=== PATIENT | male | born 1945 | race Caucasian/White ===

== ENCOUNTER 2017-04-09 06:23 | Day surgery (SDC) | payer MEDICARE, OTHER ==
[~2017-04-09 06:23] MED LIST: KETOROLAC TROMETHAMINE 0.45% 4 DROP/0.4 ML DROPERETTE OS PRN
[2017-04-09] MEDS: CYCLOPENTOLATE 0.2%/PHENYLEPHRINE 1% OPH SOLN 2 ML OS PRN ×3 (06:42→07:04)
[2017-04-09] MEDS: TROPICAMIDE 1% OPH SOLN 3 ML OS PRN ×3 (06:42→07:04)
[2017-04-09] MEDS: BESIFLOXACIN HCL 0.6% OPH SUSP 5 ML BOTTLE OS PRN ×4 (06:43→07:59)
[2017-04-09] MEDS: TETRACAINE HCL 0.5% OPH SOLN 2 ML OS PRN ×3 (06:44→07:39)
[2017-04-09] MEDS ORDERED: MIDAZOLAM 2 MG/2 ML INJ ONE ×2 (06:57→08:17)
[2017-04-09] MEDS ORDERED: EPINEPHRINE INJ/PF 1 MG/1 ML AMPULE ONE (07:13)
[2017-04-09] MEDS ORDERED: LIDOCAINE 1% INJ-PF (10 MG/ML) 30 ML SDV ONE (07:14)
[2017-04-09] MEDS ORDERED: CHONDR SU A NA/HYALUR INTRAOC KIT (SURGICARE) ONE (07:14)
--- NOTE | 2017-04-10 13:07 | [facility] OPERATIVE REPORT E ---
[facility] Operative Report NAME: HAMIDA ERICKSON AGE: 72Y DATE OF SURGERY: 04/09/2017 ROOM: PREOPERATIVE DIAGNOSIS: CATARACT, LEFT EYE. POSTOPERATIVE DIAGNOSIS: CATARACT, LEFT EYE. OPERATION: Cataract extraction with intraocular lens implant of the left eye. SURGEON: KEATON SILVER M.D. ANESTHESIA: Topical. PROCEDURE: After obtaining appropriate consent, the patient's left eye was prepped and draped in sterile fashion as well as the surgeon in a sterile manner and cataract surgery was started. First a paracentesis blade was used to make a small side-port incision. Viscoelastic was used to inflate the anterior chamber. Next a 2.4-mm incision was made with the paracentesis blade. A continuous capsulorrhexis incision was made using a cystotome and Utrata forceps. Following this hydrodissection was carried out to make the lens fully loose and mobile and it was rotated 90 degrees. Following this, a bktgwa-lpt-qqyiopu technique was used to phacoemulsify the lens with a CDE of 13.66. The remaining cortex was removed with irrigation/aspiration. Provisc was instilled into the capsular bag to inflate the bag. A SN60WF, 18.0 diopter lens was placed. The remaining viscoelastic material was removed with irrigation/aspiration. Following this, a 10-0 nylon suture was used to close the incision and it was found to be watertight. Vigamox was instilled in the eye and a protective shield was placed over the eye. The patient returned to the postoperative recovery in stable condition. DICTATING PHYSICIAN: KEATON SILVER M.D. 1209M 1304 PHY#: [id number] ID: [id number] JOB#: [id number] ACCT: [id number] cc:KEATON SILVER M.D. >
--- NOTE | 2017-04-10 13:12 | [facility] DISCHARGE SUMMARY E ---
[facility] Discharge Summary NAME: HAMIDA ERICKSON AGE: 72Y ADMITTED: 04/09/2017 DISCHARGED: 04/09/2017 DIAGNOSIS: CATARACT, LEFT EYE. SUMMARY: This is a 72-year-old male who underwent cataract extraction of the left eye. He underwent surgery because he was having difficulty driving secondary to glare from headlights. DISCHARGE INSTRUCTIONS: He should be on a regular diet, no bending at his waist, and no heavy lifting. He should use his Besivance, Ilevro and Durezol at 3 p.m. and 8 p.m. and sleep with a rigid shield. I will see him for his 1-day postoperative tomorrow. DICTATING PHYSICIAN: KEATON SILVER M.D. 1209M 1306 PHY#: [id number] ID: [id number] JOB#: [id number] ACCT: [id number] cc:KEATON SILVER M.D. >
== END 2017-04-09 08:46 | disposition home or self-care (01) ==
LOC: SC 06:23
PROVIDERS: ATTEND Internal Medicine
PROC: 08RK3JZ Replacement of Left Lens with Synthetic Substitute, Percutaneous Approach (ICD-10-PCS; principal; 2017-04-09 07:30)
DX: H25.12 Age-related nuclear cataract, left eye (principal); I10 Essential (primary) hypertension; J43.9 Emphysema, unspecified; K21.9 Gastro-esophageal reflux disease without esophagitis; Z79.51 Long term (current) use of inhaled steroids; Z79.899 Other long term (current) drug therapy; Z88.8 Allergy status to other drugs, medicaments and biological substances
CPT/HCPCS: 66984; V2632; J2250; J3490 ×2; A9270; J0171; 142

== ENCOUNTER 2017-04-30 07:43 | Day surgery (SDC) | payer MEDICARE, OTHER ==
[~2017-04-30 07:43] MED LIST changes: +KETOROLAC TROMETHAMINE 0.45% 4 DROP/0.4 ML DROPERETTE OD PRN; -KETOROLAC TROMETHAMINE 0.45% 4 DROP/0.4 ML DROPERETTE OS PRN
[2017-04-30] MEDS ORDERED: LIDOCAINE 1% INJ-PF (10 MG/ML) 30 ML SDV ONE (07:45)
[2017-04-30] MEDS ORDERED: PHENYLEPHRINE/KETOROLAC 1%-0.3% 4 ML VIAL ONE (07:45)
[2017-04-30] MEDS ORDERED: CHONDR SU A NA/HYALUR INTRAOC KIT (SURGICARE) ONE (07:45)
[2017-04-30] MEDS: CYCLOPENTOLATE 0.2%/PHENYLEPHRINE 1% OPH SOLN 2 ML OD PRN ×3 (08:22→08:42)
[2017-04-30] MEDS: TROPICAMIDE 1% OPH SOLN 3 ML OD PRN ×3 (08:22→08:42)
[2017-04-30] MEDS: TETRACAINE HCL 0.5% OPH SOLN 2 ML OD PRN ×3 (08:23→08:54)
[2017-04-30] MEDS: BESIFLOXACIN HCL 0.6% OPH SUSP 5 ML BOTTLE OD PRN ×3 (08:23→09:17)
[2017-04-30] MEDS ORDERED: MIDAZOLAM 2 MG/2 ML INJ ONE (08:37)
--- NOTE | 2017-04-30 21:32 | [facility] OPERATIVE REPORT E ---
[facility] Operative Report NAME: HAMIDA ERICKSON AGE: 72Y DATE OF SURGERY: 04/30/2017 ROOM: PREOPERATIVE DIAGNOSIS: CATARACT, RIGHT EYE. POSTOPERATIVE DIAGNOSIS: CATARACT, RIGHT EYE. OPERATION: Cataract extraction with intraocular lens implant of the right eye. SURGEON: KEATON SILVER M.D. ANESTHESIA: Topical. PROCEDURE: After obtaining appropriate consent, the patient's right eye was prepped and draped in sterile fashion as well as the surgeon in a sterile manner and cataract surgery was started. First a paracentesis blade was used to make a small side-port incision. Viscoelastic was used to inflate the anterior chamber. Next a 2.4 mm incision was made with the paracentesis blade. A continuous capsulorrhexis incision was made using a cystotome and Utrata forceps. Following this hydrodissection was carried out to make the lens fully loose and mobile and it was rotated 90 degrees. Following this, a hvinlv-rkw-mgfenty technique was used to phacoemulsify the lens with a CDE of 9.96. The remaining cortex was removed with irrigation/aspiration. Provisc was instilled into the capsular bag to inflate the bag. A SN60WF, 18.0 diopter lens was placed. The remaining viscoelastic material was removed with irrigation/aspiration. Following this, a 10-0 nylon suture was used to close the incision and it was found to be watertight. Vigamox was instilled in the eye and a protective shield was placed over the eye. The patient returned to the postoperative recovery in stable condition. DICTATING PHYSICIAN: KEATON SILVER M.D. 1274M 2125 PHY#: [id number] ID: [id number] JOB#: [id number] ACCT: [id number] cc:KEATON SILVER M.D. >
--- NOTE | 2017-04-30 21:37 | DISCHARGE SUMMARY E ---
Discharge Summary NAME: HAMIDA ERICKSON : 1945 AGE: 72Y ADMITTED: 04/30/2017 DISCHARGED: HISTORY: This is a 72-year-old male who underwent cataract extraction of the right eye. DIAGNOSIS: Cataract, right eye. HOSPITAL COURSE: He underwent surgery because he was having difficulty seeing words on TV. DISCHARGE INSTRUCTIONS: 1. He should be on a regular diet. 2. No bending at his waist. 3. No heavy lifting. 4. He should use his Besivance, Ilevro, and Durezol at 3 p.m. and 8 p.m. and sleep with a rigid shield. 5. I will see him for his 1 day postoperative tomorrow. DICTATING PHYSICIAN: KEATON SILVER M.D. 1274M 2125 Y#: [id number] ID: [id number] JOB#: [id number] ACCT: [id number] cc:KEATON SILVER M.D. >
== END 2017-04-30 09:58 | disposition home or self-care (01) ==
LOC: SC 07:43
PROVIDERS: ATTEND Internal Medicine
PROC: 08RJ3JZ Replacement of Right Lens with Synthetic Substitute, Percutaneous Approach (ICD-10-PCS; principal; 2017-04-30 09:00)
DX: H25.11 Age-related nuclear cataract, right eye (principal); Z96.1 Presence of intraocular lens; H40.013 Open angle with borderline findings, low risk, bilateral; Z98.42 Cataract extraction status, left eye; H04.123 Dry eye syndrome of bilateral lacrimal glands; I10 Essential (primary) hypertension; M19.90 Unspecified osteoarthritis, unspecified site; J44.9 Chronic obstructive pulmonary disease, unspecified; J43.9 Emphysema, unspecified; I49.9 Cardiac arrhythmia, unspecified; Z87.891 Personal history of nicotine dependence; Z88.8 Allergy status to other drugs, medicaments and biological substances
CPT/HCPCS: 66984; V2632; J2250; J3490 ×2; A9270; C9447; 142